=== PATIENT | male | born 1930 | race Caucasian/White ===

== ENCOUNTER → 2017-07-18 | Outpatient (CLI) | payer MEDICARE, OTHER ==
[~2017-07-18] MED LIST: ASPI81CH25 PO; GALA24CA PO; GALA4TAB PO; MEMA1TAB2 PO; MULT-65 PO; PRAV40TA2 PO; VITA10004 PO; WALKER GLIDE WH1 MI2; ePHEDrine/NS 25 MG/5 ML SYR ONE
[2017-07-18 12:19] LABS: BASOPHIL # 0.1 TH/MM3 (0-0.2); BASOPHIL % 0.7 % (0.0-2.0); EOSINOPHIL # 0.2 TH/MM3 (0-0.4); EOSINOPHIL % 2.3 % (0.0-4.0); HEMATOCRIT 38.7 % (39.0-51.0); LYMPH % 19.2 % (9.0-44.0); LYMPHOCYTE # 1.4 TH/MM3 (1.0-4.8); MEAN CELL VOLUME 93.9 FL (80.0-100.0); MEAN CORPUSCULAR HGB CONC 34.1 % (32.0-36.0); MONO % 9.9 % (0.0-8.0); NEUT % 67.9 % (16.0-70.0); PLATELET COUNT 72 TH/MM3 (150-450); RED BLOOD COUNT 4.12 MIL/MM3 (4.50-5.90); RED CELL DISTRIBUTION WIDTH 14.1 % (11.6-17.2); WHITE BLOOD COUNT 7.3 TH/MM3 (4.0-11.0)
[2017-07-18 12:25] LABS: HEMO FLAGS AUTO DIFF
[2017-07-18 12:29] LABS: INTERNATIONAL NORMALIZED RATIO 0.9 RATIO; PROTHROMBIN TIME - PATIENT 10.4 SEC (9.8-11.6)
[2017-07-18 12:47] LABS: BICARBONATE 28.7 MEQ/L (21.0-32.0); POTASSIUM 4.5 MEQ/L (3.5-5.1)
[2017-07-18 13:26] LABS: ACANTHOCYTES 1+ (NORMAL); PLATELET ESTIMATE SMEAR LOW (NORMAL); PLATELET MORPHOLOGY NORMAL (NORMAL); SCAN/DIFF AUTO DIFF CONFIRMED
== END ==
LOC: CPRE 11:10
PROVIDERS: ATTEND Surgery
DX: Z01.812 Encounter for preprocedural laboratory examination (principal); I71.4 Abdominal aortic aneurysm, without rupture; I77.9 Disorder of arteries and arterioles, unspecified
CPT/HCPCS: 36415; 80048; 85025; 85610; 86850; 86900; 86901

== ENCOUNTER 2017-07-20 07:11 | Inpatient (IN) | payer MEDICARE ==
[~2017-07-20] VITALS: Ht 185.4 cm; Wt 70.0 kg
[2017-07-20] VITALS (10 sets, daily range): BP systolic 119–128; BP diastolic 60–75; PULSE 59–69; RESP 16; TEMP 97.8–98; O2SAT 95–99
[~2017-07-20 07:11] MED LIST changes: -ASPI81CH25 PO; -WALKER GLIDE WH1 MI2; -ePHEDrine/NS 25 MG/5 ML SYR ONE
[2017-07-20] MEDS ORDERED: INSULIN HUMAN REGULAR 1,000 UNITS/10 ML VIAL SQ PRN (08:00)
[2017-07-20] MEDS ORDERED: LACTATED RINGER'S 1000 ML IV PRN (08:00)
[2017-07-20] MEDS ORDERED: CHLORHEXIDINE GLUCONATE 2 % 1 PACK (2 CLOTHS) TOPICAL PRN (08:00)
[2017-07-20] MEDS ORDERED: SODIUM CHLORID 0.9% 500 ML IV PRN (08:00)
[2017-07-20] MEDS ORDERED: METOPROLOL TARTRATE 25 MG TAB PO PRN (08:00)
[2017-07-20] MEDS ORDERED: POVIDONE IODINE 5% (ANTISEPSIS KIT) 4 APPLICATIONS EACH NARE PRN (08:00)
[2017-07-20] MEDS ORDERED: PROTAMINE SULFATE 50 MG/5 ML VIAL ONE (08:20)
[2017-07-20] MEDS ORDERED: HEPARIN-NS/PF INJ 1,000 ML ONE (08:20)
[2017-07-20] MEDS ORDERED: HEPARIN SODIUM - IV 10,000 UNITS/10 ML VIAL ONE (08:20)
--- NOTE | 2017-07-20 08:47 | HHI.HP ---
History of Present Illness Chief Complaint: thrombocytopenia, iliac aneurysms History of Present Illness 87 yo male with refractory thrombocytopenia and iliac artery aneurysms. He has a history of end-to-end aortic to EIA (end to side) and is perfusing his aneurysms retrograde. Past/Family/Social History Past Medical History HTN AAA Past Surgical History AAA repair Social History nonsmoker Family History NC Home Medications Reported Medications Multiple Vitamin (Multi-Vitamin Daily) 1 Tab Tab, 1 TAB PO DAILY for Nutritional Supplement, TAB 0 Refills 07/19/17 Cyanocobalamin ER (Vitamin B-12 Cr) 1,000 Mcg Tab, 1000 MCG PO DAILY for Nutritional Supplement, #1 BOTTLE 0 Refills 07/19/17 Pravastatin (Pravastatin) 40 Mg Tab, 40 MG PO DAILY for Cholesterol Management, #30 TAB 0 Refills 07/19/17 Memantine (Memantine) 10 Mg Tab, 10 MG PO DAILY for Alzheimer's Dementia, TAB 0 Refills 07/19/17 Galantamine ER (Galantamine ER) 24 Mg Caper, 24 MG PO DAILY for Alzheimer's Dementia, #30 CAP 0 Refills 07/19/17 Discontinued Reported Medications Galantamine (Galantamine) 4 Mg Tab, PO BID for Alzheimer's Dementia, #60 TAB 0 Refills 07/18/17 Coded Allergies: No Known Allergies (Unverified , 07/20/17) Review of Systems Constitutional: COMPLAINS OF: Fatigue Eyes: DENIES: Blurred vision, Diplopia, Eye inflammation, Eye pain, Vision loss , Photosensitivity, Double Vision Cardiovascular: DENIES: Chest pain, Palpitations, Syncope, Dyspnea on Exertion , PND, Lower Extremity Edema, Orthopnea, Claudication Physical Exam Vitals/I&O Date Time Temp Pulse Resp B/P (MAP) Pulse Ox O2 Delivery O2 Flow Rate FiO2 07/20/17 08:01 97.6 60 20 158/92 (114) 96 Neuro: alert oriented HEENT: normocephalic, aniecteric sclera Neck: no JVD Heart: reg rate Lungs: clear bilaterally Abdomen: nontender Vascular: palapble pulses B LE Linwoodrini VTE Risk Assessment Caprini VTE Risk Assessment: Mod/High Risk (score >= 2) Caprini Risk Assessment Model Point Value = 1 Point Value = 2 Point Value = 3 Point Value = 5 Age 41-60 Minor surgery BMI > 25 kg/m2 Swollen legs Varicose veins or History of unexplained or recurrent spontaneous Oral contraceptives or hormone replacement Sepsis (< 1 month) Serious lung disease, including pneumonia (< 1 month) Abnormal pulmonary function Acute myocardial infarction Congestive heart failure (< 1 month) History of inflammatory bowel disease Medical patient at bed rest Age 61-74 Arthroscopic surgery Major open surgery (> 45 min) Laparoscopic surgery (> 45 min) Malignancy Confined to bed (> 72 hours) Immobilizing plaster cast Central venous access Age >= 75 History of VTE Family history of VTE Factor V Leiden Prothrombin [id number] Lupus anticoagulant Anticardiolipin antibodies Elevated serum homocysteine Heparin-induced thrombocytopenia Other congenital or acquired thrombophilia Stroke (< 1 month) Elective arthroplasty Hip, pelvis, or leg fracture Acute spinal cord injury (< 1 month) Prophylaxis Regimen Total Risk Factor Score Risk Level Prophylaxis Regimen 0-1 Low Early ambulation 2 Moderate Order ONE of the following: *Sequential Compression Device (SCD) *Heparin 5000 units SQ BID 3-4 Higher Order ONE of the following medications: *Heparin 5000 units SQ TID *Enoxaparin/Lovenox 40 mg SQ daily (WT < 150 kg, CrCl > 30 mL/min) *Enoxaparin/Lovenox 30 mg SQ daily (WT < 150 kg, CrCl > 10-29 mL/min) *Enoxaparin/Lovenox 30 mg SQ BID (WT < 150 kg, CrCl > 30 mL/min) AND/OR *Sequential Compression Device (SCD) 5 or more Highest Order ONE of the following medications: *Heparin 5000 units SQ TID (Preferred with Epidurals) *Enoxaparin/Lovenox 40 mg SQ daily (WT < 150 kg, CrCl > 30 mL/min) *Enoxaparin/Lovenox 30 mg SQ daily (WT < 150 kg, CrCl > 10-29 mL/min) *Enoxaparin/Lovenox 30 mg SQ BID (WT < 150 kg, CrCl > 30 mL/min) AND *Sequential Compression Device (SCD) Assessment and Plan Plan EVAR revision w/ endo bypass L hypo-EIA and R CCA/hypo embolization Discussed again the risks and benefits with patient. To OR Jaron Alcazar MD Jul 20, 2017 08:47
[2017-07-20] MEDS ORDERED: ceFAZolin 2 GM PREMIX 50 ML ONE (09:07)
[2017-07-20] MEDS ORDERED: IOHEXOL 350 MG/ML 100 ML BTL (for RAD DIAG) IVCONTRAST ONE (11:03)
--- NOTE | 2017-07-20 11:30 | HHI.PR ---
cc: Shaniqua Washburn MD Immediate Post Op Note Procedure Date: Jul 20, 2017 Pre Op Diagnosis: B NEERU aneurysms, s/p [id number] repair Post Op Diagnosis: B NEERU aneurysms, s/p [id number] repair Surgeon: Jaron Alcazar Pulp Mill Supervisor(s): Linda Doshi MS4 Procedure: 1. L NEERU aneurysm exclusion (endovascular bypass from EIA to hypogastric artery with Viabahn 13x5, 10x10) 2. R hypogastric and R NEERU embolization 3. L [employer]KS [employer] RECREATION WORKER Perclose 4. R [employer] RECREATION WORKER Angioseal Findings: successful exclusion of L NEERU aneurysm embolization of R NEERU aneursym Additional Information: palpable pedal pulses at end of case Complications: none Estimated blood loss: 50mL Anesthesia: General Drains: None Fluids: 2000mL IVF Patient to: PACU Patient Condition: Good Implant/Devices: SEE IMPLANT LOG (if applicable) Date/Time of Procedure: SEE SURGICAL CARE RECORD Jaron Alcazar MD Jul 20, 2017 11:08
[2017-07-20] MEDS ORDERED: DO NOT ADM ANY ANTICOAGULANT DRUGS PRN (12:15)
[2017-07-20 12:33] LABS: HEMATOCRIT 34.7 % (39.0-51.0); MEAN CORPUSCULAR HEMOGLOBIN 31.3 PG (27.0-34.0); MEAN CORPUSCULAR HGB CONC 33.3 % (32.0-36.0); PLATELET COUNT 88 TH/MM3 (150-450); RED BLOOD COUNT 3.69 MIL/MM3 (4.50-5.90); RED CELL DISTRIBUTION WIDTH 13.9 % (11.6-17.2); WHITE BLOOD COUNT 9.1 TH/MM3 (4.0-11.0)
[2017-07-20 12:35] LABS: REVIEW FLAG FINAL
[2017-07-20] MEDS ORDERED: hydrALAZINE HCL 20 MG/ML VIAL IV ONE (13:32)
[2017-07-20] MEDS ORDERED: NEOSTIGMINE 3 MG/3 ML SYR IV ONE (13:32)
[2017-07-20] MEDS ORDERED: ROCURONIUM INJ 50 MG/5 ML SYRINGE IV PUSH ONE (13:32)
[2017-07-20] MEDS ORDERED: ONDANSETRON HCL 4 MG/2 ML VIAL IV PUSH ONE (13:32)
[2017-07-20] MEDS ORDERED: DEXAMETHASONE SOD PHOS 4 MG/ML VIAL IV ONE (13:32)
[2017-07-20] MEDS ORDERED: LIDOCAINE HCL 1% PF 5 ML AMPULE OTHER ONE (13:32)
[2017-07-20] MEDS ORDERED: GLYCOPYRROLATE 1 MG/5 ML SYRINGE IV PUSH ONE (13:32)
[2017-07-20] MEDS ORDERED: SODIUM CHLORID 0.9% 500 ML INJ 500 ML IV ONE (13:32)
[2017-07-20] MEDS ORDERED: MIDAZOLAM HCL 2 MG/2 ML VIAL IV ONE (13:32)
[2017-07-20] MEDS ORDERED: LABETALOL HCL 20 MG/4 ML VIAL IV ONE (13:32)
[2017-07-20] MEDS ORDERED: NORMOSOL R INJ 1,000 ML IV ONE (13:32)
[2017-07-20] MEDS ORDERED: ePHEDrine/NS 25 MG/5 ML SYR IV ONE (13:32)
[2017-07-20] MEDS: FAMOTIDINE 20 MG TAB PO SCH (21:28)
--- NOTE | 2017-07-20 22:58 | MP ---
cc: MARCELLE ALCAZAR MD DATE OF SURGERY 07/20/17 PREOPERATIVE DIAGNOSIS Bilateral common iliac artery aneurysm POSTOPERATIVE DIAGNOSIS Bilateral common iliac artery aneurysm PROCEDURE 1. Endovascular treatment of left common iliac artery aneurysm using an endovascular bypass between the left hypogastric artery and the left external iliac artery. 2. Embolization of right hypogastric artery. 3. Embolization of right common iliac artery. 4. IVUS of LEFT hypogastric and external iliac arteries ATTENDING SURGEON Romain Alcazar MD SOLUTION DIRECTOR Lisandra Doshi, MS4 ANESTHESIA General INDICATION Mr. Mishra is an 87-year-old gentleman with an abdominal aortic aneurysm and bilateral common iliac artery aneurysms. Years ago at an outside institution, he had his repair of his infrarenal aneurysm with an open aorta bi-external iliac artery aneurysm repair. The common iliac arteries which were retrograde perfused after an distal anastomoses had become aneurysmal and causing the patient to resume refractory thrombocytopenia. After a thorough discussion was had with the patient and his and analysis of the CT scan, he was offered endovascular solution that would preserve one hypogastric artery and occlude the other thereby occluding the iliac artery aneurysms. DESCRIPTION OF PROCEDURE Informed consent was obtained. The patient is taken to the operating room and placed supine on the operating table. An appropriate time-out was taken to ensure the patient identity, the operative site and the planned procedure. The administration of 2 grams of Kefzol was initiated prior to skin incision, will be discontinued after a single preoperative disease, Everyone in the room agreed with time-out and we proceeded. He was prepped from the nipples to his knees. A 21 gauge micropuncture needle was used to access the right common femoral artery. This was exchanged using Seldinger technique for a micropuncture sheath for which a 0.035 Glidewire was introduced. The micropuncture sheath was exchanged for a 6-Brazilian sheath. This was flushed and will be reused later. Similarly on the left hand side, a 21 gauge micropuncture needle was used to access the left common femoral artery. This was exchanged using Seldinger technique for a micropuncture sheath through which a 0.035 Glidewire was introduced. The micropuncture sheath was exchanged for a 5-Brazilian sheath which was used to dilated the skin and subcutaneous tract and arteriotomy. Two Perclose ProGlide sutures were inserted, tagged and not tied down but will be used later. An 8-Brazilian sheath was introduced. The patient was then systemically heparinized. An ACT was kept greater than 250 throughout to the end of the case. The Glidewire was navigated with the aid of a Berenstein catheter into the [place] external iliac artery and indeed into the common iliac artery and hypogastric artery. The wire was then buried down deep into the left hypogastric artery and a quick cross catheter was placed over this and the Glidewire was exchanged for a Agrawal wire. The quick cross catheter was removed. The 8-Brazilian sheath was removed and the 12-Brazilian sheath was introduced until the tip of the sheath was in the proximal external iliac artery. Intravascular ultrasound catheter was then placed over the wire and through the sheath and images of the external iliac artery and internal iliac artery were obtained. Based on this, the size was determined to be appropriate for a 10-mm Viabahn. The IVUS catheter was removed and the 10 x 100 Viabond catheter was introduced, advanced up over the common iliac artery into the left hypogastric artery. It was deployed without difficulty and postdilated at 10 mm. The retrograde angiogram showed a slight essentially type 1 endoleak and a 13 x 50 Viabahn was then placed in the external iliac artery more proximally as blood flows and this was postdilated to 12 mm. A completion angiogram showed excellent result, maintenance perfusion of the hypogastric artery and no evidence of filling of the common iliac artery aneurysm. The wire catheter and sheath were removed. Perclose were tied down. Hemostasis was achieved in a groin. I then turned my attention to the right-hand side. A Glidewire was introduced and navigated up through the [place]ct[place] external iliac artery into the hypogastric artery and a Berenstein catheter was advanced over this. The hypogastric artery was then coil embolized and the right common iliac artery was coil embolized. The completion angiogram showed excellent result and packing of the coils. The wire, catheter and sheath were removed. The groin was closed with AngioSeal. There were no complications. I was present and scrubbed and performed the entire procedure. MD SAHRA Hirsch/ /1:43 PM /10:33 PM KAYLAN
[2017-07-21] VITALS (11 sets, daily range): BP systolic 128–143; BP diastolic 68–80; PULSE 56–66; RESP 16–20; TEMP 97.8–98.1; O2SAT 96–98
[2017-07-21 04:30] LABS: HEMATOCRIT 34.3 % (39.0-51.0); MEAN CELL VOLUME 94.1 FL (80.0-100.0); MEAN CORPUSCULAR HEMOGLOBIN 31.5 PG (27.0-34.0); MEAN CORPUSCULAR HGB CONC 33.4 % (32.0-36.0); PLATELET COUNT 79 TH/MM3 (150-450); RED BLOOD COUNT 3.65 MIL/MM3 (4.50-5.90); RED CELL DISTRIBUTION WIDTH 13.8 % (11.6-17.2); WHITE BLOOD COUNT 10.2 TH/MM3 (4.0-11.0)
[2017-07-21 04:37] LABS: REVIEW FLAG FINAL
[2017-07-21] MEDS ORDERED: GALANTAMINE HYDROBROMIDE 4 MG TAB PO SCH (09:00)
[2017-07-21] MEDS ORDERED: MULTIVITAMIN TAB PO SCH (09:00)
[2017-07-21] MEDS ORDERED: CYANOCOBALAMIN 1,000 MCG TAB PO SCH (09:00)
[2017-07-21] MEDS ORDERED: ASPIRIN 81 MG CHEW TAB PO SCH (09:00)
[2017-07-21] MEDS ORDERED: PRAVASTATIN SOD 40 MG TAB PO SCH (09:00)
[2017-07-21] MEDS ORDERED: MEMANTINE HCL 10 MG TAB PO SCH (09:00)
[2017-07-21] MEDS: FAMOTIDINE 20 MG TAB PO SCH (09:09)
[2017-07-21] MEDS ORDERED: ASPI81CH25 PO (09:26)
--- NOTE | 2017-07-21 09:40 | PD.VS.DC ---
Discharge Summary Admission Date: Jul 20, 2017 at 07:11 Discharge Date: Jul 21, 2017 Admission Diagnosis: (1) Iliac artery aneurysm Discharge Diagnosis: (1) Iliac artery aneurysm ICD Codes: I72.3 - Aneurysm of iliac artery Brief History from admission 87 yo male with refractory thrombocytopenia and iliac artery aneurysms. He has a history of end-to-end aortic to EIA (end to side) and is perfusing his aneurysms retrograde. Procedure(s): L NEERU aneurysm exclusion (endovascular bypass from EIA to hypogastric artery with Viabahn 13x5, 10x10) R hypogastric and R NEERU embolization L ENVIRONMENTAL SCIENCES PROFESSOR Perclose R ENVIRONMENTAL SCIENCES PROFESSOR Angioseal Significant Findings GENERAL:Alert in NAD SKIN: Warm and dry Dressings to Bilat groins i/c/d w/o Redness or swelling Pt denies abdominal pain Laboratory Tests Test 07/20/17 12:15 07/21/17 04:04 Red Blood Count 3.69 MIL/MM3 (4.50-5.90) 3.65 MIL/MM3 (4.50-5.90) Hemoglobin 11.5 GM/DL (13.0-17.0) 11.5 GM/DL (13.0-17.0) Hematocrit 34.7 % (39.0-51.0) 34.3 % (39.0-51.0) Platelet Count 88 TH/MM3 (150-450) 79 TH/MM3 (150-450) Calcium Level 8.1 MG/DL (8.5-10.1) Estimat Glomerular Filtration Rate 63 ML/MIN (>89) Hospital Course: 87 yo male with refractory thrombocytopenia and iliac artery aneurysms. He has a history of end-to-end aortic to EIA (end to side) and is perfusing his aneurysms retrograde. Pt s/p L NEERU aneurysm exclusion/R hypogastric and R NEERU embolization POD doing well w/o complications Pt will f/u in 1M with a surveillance CTA post EVAR was called ([phone]) d/c instructions given instructed to call with any questions or concerns Allergies Coded Allergies Type Severity Reaction Last Updated Verified No Known Allergies 07/20/17 No 07/19/17 07/19/17 07/20/17 07/20/17 07/21/17 07/21/17 06:00 18:00 06:00 18:00 06:00 18:00 Intake Total 2240 ml 480 ml Output Total 475 ml 150 ml Balance 1765 ml 330 ml Intake Oral 240 ml 480 ml Other 2000 ml Output Urine Total 425 ml 150 ml Estimated Blood Loss 50 ml Laboratory Tests Test 07/20/17 12:15 07/21/17 04:04 White Blood Count 9.1 TH/MM3 10.2 TH/MM3 Red Blood Count 3.69 MIL/MM3 3.65 MIL/MM3 Hemoglobin 11.5 GM/DL 11.5 GM/DL Hematocrit 34.7 % 34.3 % Mean Corpuscular Volume 94.0 FL 94.1 FL Mean Corpuscular Hemoglobin 31.3 PG 31.5 PG Mean Corpuscular Hemoglobin Concent 33.3 % 33.4 % Red Cell Distribution Width 13.9 % 13.8 % Platelet Count 88 TH/MM3 79 TH/MM3 Mean Platelet Volume 9.7 FL 10.0 FL Blood Urea Nitrogen 17 MG/DL Creatinine 1.11 MG/DL Random Glucose 83 MG/DL Calcium Level 8.1 MG/DL Sodium Level 136 MEQ/L Potassium Level 4.0 MEQ/L Chloride Level 103 MEQ/L Carbon Dioxide Level 28.0 MEQ/L Anion Gap 5 MEQ/L Estimat Glomerular Filtration Rate 63 ML/MIN Orders Procedure Category Date Status Time Lactated Ringer's MED 07/20/17 In Process 1000 Ml Inj (Lr 1000 M 08:00 Sodium Chlorid 0.9% MED 07/20/17 In Process 500 Ml Inj (Ns 500 M 08:00 Metoprolol Tartrate MED 07/20/17 In Process (Lopressor) 08:00 Povidone Iod 5% MED 07/20/17 In Process Antisepsis Kit 08:00 Chlorhexidine 2% MED 07/20/17 In Process Cloth (Chlorhexidine 08:00 Insulin Human Regular MED 07/20/17 In Process Inj (Novolin R Inj 08:00 Protamine Sulfate Inj MED 07/20/17 Complete (Protamine Sulfate 08:20 Heparin Inj (Heparin MED 07/20/17 Complete Inj) 08:20 Heparin-Ns/Pf Inj MED 07/20/17 Complete (Heparin-Ns/Pf Inj) 08:20 Cefazolin 2 Gm Premix MED 07/20/17 Complete (Ancef 2 Gm Premix 09:07 Endovascular Cath CATH 07/20/17 Logged Urinary Catheter TK 07/20/17 In Process Management 09:32 Iohexol 350 Inj MED 07/20/17 Complete (Omnipaque 350 Inj) 11:03 Admit To Inpatient ADMITTING 07/20/17 Transmitted Code Status CODE 07/20/17 Transmitted 11:08 Vital Signs (Adult) TK 07/20/17 Complete 11:08 Manhole Stripper / TK 07/20/17 In Process Telemetry 11:08 Activity Oob Ad Rebeca TK 07/21/17 In Process 08:00 Activity Bed Rest TK 07/20/17 In Process 11:08 Precautions TK 07/20/17 In Process 11:08 Diet Heart Healthy DIET 07/20/17 Transmitted Lunch Cbc No Diff, Includes LAB 07/20/17 Complete Plts 11:08 Aspirin Chew (Aspirin MED 07/21/17 In Process Chew) 09:00 Famotidine (Pepcid) MED 07/20/17 In Process 21:00 Oxycodone (Roxicodone) MED 07/20/17 In Process 11:15 Scd Bilateral/Knee TK 07/20/17 In Process High 11:08 Inpatient ADMITTING 07/20/17 Transmitted Certification Cyanocobalamin MED 07/21/17 In Process (Vitamin B12) 09:00 Memantine (Namenda) MED 07/21/17 In Process 09:00 Pravastatin MED 07/21/17 In Process (Pravachol) 09:00 Galantamine (Razadyne) MED 07/21/17 In Process 09:00 Multivitamin MED 07/21/17 In Process (Theragran) 09:00 Remove Urinary TK 07/20/17 In Process Catheter 15:00 Misc Nursing MED 07/20/17 In Process Information 12:15 Enoxaparin Inj MED 07/21/17 In Process (Lovenox Inj) 10:00 Class [facility] Complete MIN [facility]17 Complete Post [facility]esthesia [facility]17 Complete Pacu [facility] 07/20/17 Complete Hourly Am Admit Pre Op Care [facility] 07/20/17 Complete Basic Metabolic Panel LAB 07/21/17 Complete (Bmp) 04:00 Cbc No Diff, Includes LAB 07/21/17 Complete Plts 04:00 Attending Discharge DISCHARGE 07/21/17 Transmitted Order Vital Signs Date Time Temp Pulse Resp B/P (MAP) Pulse Ox O2 Delivery O2 Flow Rate FiO2 07/21/17 07:00 97.9 66 20 143/80 (101) 98 07/21/17 06:00 60 07/21/17 05:00 58 07/21/17 04:00 62 07/21/17 03:00 64 07/21/17 03:00 97.8 63 16 132/77 (95) 96 07/21/17 02:00 64 07/21/17 01:00 62 07/21/17 00:00 60 07/20/17 23:00 98.0 60 16 123/70 (87) 95 07/20/17 23:00 60 07/20/17 22:00 62 07/20/17 21:00 60 07/20/17 20:00 62 07/20/17 19:00 97.8 64 16 119/60 (79) 97 07/20/17 19:00 66 07/20/17 18:00 59 07/20/17 17:00 67 07/20/17 16:00 69 07/20/17 15:27 97.9 60 16 128/75 (92) 99 07/20/17 15:00 60 07/20/17 13:30 97.4 62 15 128/72 (90) 100 Room Air 07/20/17 13:00 62 12 126/79 (95) 100 07/20/17 12:30 63 12 120/68 (85) 100 07/20/17 12:15 65 13 123/67 (85) 100 07/20/17 12:00 65 13 119/73 (88) 100 07/20/17 11:45 63 12 130/75 (93) 100 07/20/17 11:30 61 12 165/94 (117) 100 Nasal Cannula 2 07/20/17 11:23 97.4 62 13 164/89 (114) 100 Nasal Cannula 2 07/20/17 08:01 97.6 60 20 158/92 (114) 96 Discharge Condition: Good Discharge Disposition: Discharge Home Discharge Instructions: F/U in 1M at scheduled appointment time Surveillance CTA -Post EVAR ordered May remove biat groin dressings tomorrow am (07/22/17) Call to report any new onset groin swelling or severe pain May shower tomorrow am Padmaja VIZCAINO [facility]/[place] [phone] Any questions or concerns: Call [facility] at [facility] [phone] Padmaja Silvestre Jul 21, 2017 09:40
[2017-07-21] MEDS ORDERED: WALKER GLIDE WH1 MI2 (09:43)
--- NOTE | 2017-07-21 09:46 | PD.VS.PN ---
Subjective POD #: 1 Procedure(s): L NEERU aneurysm exclusion (endovascular bypass from EIA to hypogastric artery with Viabahn 13x5, 10x10) R hypogastric and R NEERU embolization L FLOOR CARE TECHNICIAN Perclose R FLOOR CARE TECHNICIAN Angioseal Subjective/Hospital Course Pt sitting up in bed w/o complaints Pt denies abdominal pain Bilat groins w/o discomfort or swelling Objective Vitals/I&O Date Time Temp Pulse Resp B/P (MAP) Pulse Ox O2 Delivery O2 Flow Rate FiO2 07/21/17 07:00 97.9 66 20 143/80 (101) 98 07/21/17 06:00 60 07/21/17 05:00 58 07/21/17 04:00 62 07/21/17 03:00 64 07/21/17 03:00 97.8 63 16 132/77 (95) 96 07/21/17 02:00 64 07/21/17 01:00 62 07/21/17 00:00 60 07/20/17 23:00 98.0 60 16 123/70 (87) 95 07/20/17 23:00 60 07/20/17 22:00 62 07/20/17 21:00 60 07/20/17 20:00 62 07/20/17 19:00 97.8 64 16 119/60 (79) 97 07/20/17 19:00 66 07/20/17 18:00 59 07/20/17 17:00 67 07/20/17 16:00 69 07/20/17 15:27 97.9 60 16 128/75 (92) 99 07/20/17 15:00 60 07/20/17 13:30 97.4 62 15 128/72 (90) 100 Room Air 07/20/17 13:00 62 12 126/79 (95) 100 07/20/17 12:30 63 12 120/68 (85) 100 07/20/17 12:15 65 13 123/67 (85) 100 07/20/17 12:00 65 13 119/73 (88) 100 07/20/17 11:45 63 12 130/75 (93) 100 07/20/17 11:30 61 12 165/94 (117) 100 Nasal Cannula 2 07/20/17 11:23 97.4 62 13 164/89 (114) 100 Nasal Cannula 2 07/21/17 07/21/17 07/21/17 07:00 15:00 23:00 Intake Total 480 ml Output Total 150 ml Balance 330 ml Exam: GENERAL:Alert in NAD SKIN: Warm and dry Dressings to Bilat groins i/c/d w/o Redness or swelling Pt denies abdominal pain Laboratory Laboratory Tests Test 07/20/17 12:15 07/21/17 04:04 White Blood Count 9.1 10.2 Red Blood Count 3.69 3.65 Hemoglobin 11.5 11.5 Hematocrit 34.7 34.3 Mean Corpuscular Volume 94.0 94.1 Mean Corpuscular Hemoglobin 31.3 31.5 Mean Corpuscular Hemoglobin Concent 33.3 33.4 Red Cell Distribution Width 13.9 13.8 Platelet Count 88 79 Mean Platelet Volume 9.7 10.0 Blood Urea Nitrogen 17 Creatinine 1.11 Random Glucose 83 Calcium Level 8.1 Sodium Level 136 Potassium Level 4.0 Chloride Level 103 Carbon Dioxide Level 28.0 Anion Gap 5 Estimat Glomerular Filtration Rate 63 Assessment and Plan Assessment: (1) Iliac artery aneurysm Plan EVAR revision w/ endo bypass L hypo-EIA and R CCA/hypo embolization Discussed again the risks and benefits with patient. To OR Discharge Planning POD 1 Doing well w/o complications Plan D/C today Walker ordered Arranged PO F/U Padmaja VIZCAINO [facility]/[employer] [phone] Padmaja Silvestre Jul 21, 2017 09:46
[2017-07-21] MEDS ORDERED: ENOXAPARIN SODIUM 30 MG/0.3 ML SYRINGE SQ SCH (10:00)
== END 2017-07-21 12:14 | disposition home or self-care (01) | DRG 272 ==
LOC: HSDI 07:11 → HCPC 14:20
PROVIDERS: ADMIT Surgery; ATTEND Surgery
PROC: 047Y3ZZ Dilation of Lower Artery, Percutaneous Approach (ICD-10-PCS; 2017-07-20)
PROC: 047J3ZZ Dilation of Left External Iliac Artery, Percutaneous Approach (ICD-10-PCS; 2017-07-20)
PROC: 04L Lower Arteries, Occlusion (ICD-10-PCS; 2017-07-20)
PROC: 04L23DZ Occlusion of Gastric Artery with Intraluminal Device, Percutaneous Approach (ICD-10-PCS; 2017-07-20)
PROC: B44GZZ3 Ultrasonography of Left Lower Extremity Arteries, Intravascular (ICD-10-PCS; 2017-07-20)
PROC: 04VC3DZ Restriction of Right Common Iliac Artery with Intraluminal Device, Percutaneous Approach (ICD-10-PCS; principal; 2017-07-20 08:57)
PROC: 04VY3DZ Restriction of Lower Artery with Intraluminal Device, Percutaneous Approach (ICD-10-PCS; 2017-07-20 08:57)
DX: I72.3 Aneurysm of iliac artery (principal); D69.6 Thrombocytopenia, unspecified; G30.9 Alzheimer's disease, unspecified; F02.80 Dementia in other diseases classified elsewhere, unspecified severity, without behavioral disturbance, psychotic disturbance, mood disturbance, and anxiety; I10 Essential (primary) hypertension; I77.9 Disorder of arteries and arterioles, unspecified
CPT/HCPCS: 36415; 75630; 80048; 85025; 85027; 85610; 86850; 86900; 86901; C1725; C1753; C1769; C1874; J0360; J0690; J1100; J1644; J1650; J2250; J2405; J2710; J2720; J3010; J7040; J7120; Q9967